=== PATIENT | male | born 1955 | race Caucasian/White ===

== ENCOUNTER 2017-01-16 02:20 | Emergency (ER) | payer OTHER ==
[~2017-01-16] VITALS: Ht 157.5 cm; Wt 76.7 kg
[2017-01-16 02:27] VITALS: BP 147/83
--- NOTE | 2017-01-16 02:33 | NUR ---
Patient ambulated to bed 02.
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
[2017-01-16] MEDS ORDERED: KETOROLAC 30 MG/ML VIAL IM ONE (02:40)
--- NOTE | 2017-01-16 04:09 | NUR ---
Patient discharged with v/s stable. Written and verbal after care instructions given and explained. Patient alert, oriented and verbalized understanding of instructions. Ambulatory with to car. All questions addressed prior to discharge. ID band removed. Patient advised to follow up with PMD. Rx of TYLENOL #3 TAB AND FLEXERIL 10MG given. Patient educated on indication of medication including possible reaction and side effects. Opportunity to ask questions provided and answered.
[2017-01-16 04:10] VITALS: BP 136/81
== END 2017-01-16 04:09 | disposition home or self-care (01) ==
LOC: MED 02:20
DX: M54.5 Low back pain (principal); V43.52XA Car driver injured in collision with other type car in traffic accident, initial encounter; Y93.89 Activity, other specified; Y92.89 Other specified places as the place of occurrence of the external cause; Y99.8 Other external cause status
CPT/HCPCS: 72100; 96372; 99284; J1885

== ENCOUNTER 2018-04-04 23:44 | Inpatient (IN) | payer OTHER, MEDICAID ==
[~2018-04-04] VITALS: Ht 165.1 cm; Wt 68.0 kg
[2018-04-05 00:02] VITALS: BP 146/88
[2018-04-05] MEDS ORDERED: NACL 0.9% 1,000 ML IV ONE (00:15)
[2018-04-05] MEDS ORDERED: KETOROLAC 30 MG/ML VIAL IVP ONE (00:15)
[2018-04-05 00:35] LABS: HEMATOCRIT 42.8 % (36-52); HEMOGLOBIN 14.4 g/dL (12.0-18.0); MEAN CORPUSCULAR HEMOGLOBIN 32 pg (27-31); MEAN CORPUSCULAR HGB CONC 34 g/dL (33-37); MEAN CORPUSCULAR VOLUME 93.4 fL (80-94); PLATELET COUNT (AUTO) 173 K/uL (140-450); RED BLOOD CELL COUNT(AUTO) 4.58 MIL/uL (4.20-6.10); RED CELL DISTRIBUTION WIDTH 13.7 % (11.6-13.7); WHITE BLOOD COUNT (AUTO) 6.7 K/uL (4.8-10.8)
[2018-04-05 00:57] LABS: ANION GAP 13.2 (8-16); CARBON DIOXIDE 26.2 mmol/L (21-32); CREATININE 0.9 mg/dL (0.7-1.3); POTASSIUM 3.4 mmol/L (3.5-5.1)
[2018-04-05 01:04] LABS: EOSINOPHILS % (MANUAL) 2 % (0-4); LYMPHOCYTES % (MANUAL) 47 % (20-46); MONOCYTES % (MANUAL) 6 % (5-12)
[2018-04-05 01:06] LABS: ALBUMIN 3.6 g/dL (3.4-5.0); TOTAL BILIRUBIN 0.7 mg/dL (0.0-1.0)
[2018-04-05] MEDS ORDERED: NITROGLYCERIN 2% 1 GM PKT TP ONE (01:20)
[2018-04-05] MEDS ORDERED: ASPIRIN 81 MG TAB.CHEW PO ONE (01:20)
[2018-04-05 01:39] LABS: PROTHROMBIN TIME 10.3 secs (10.8-13.4)
[2018-04-05] MEDS ORDERED: ENOXAPARIN 80 MG/0.8 ML SYR SUBQ ONE (01:45)
[2018-04-05] MEDS ORDERED: NITROGLYCERIN 0.4 MG TAB SL PRN (02:05)
[2018-04-05] MEDS ORDERED: HEPARIN PER PHARMACY MC PRN (02:05)
[2018-04-05] MEDS ORDERED: hePARIN / DEXT 5% PREMIX 250 ML IV SCH ×2 (02:05→03:00)
[2018-04-05] MEDS ORDERED: NAPR-54 PO (02:33)
[2018-04-05 02:46] LABS: CHOL/HDL RATIO 3.4 (1-4.5); FREE T4 (FREE THYROXINE) 0.85 ng/dL (0.76-1.46); MAGNESIUM 2.1 mg/dL (1.8-2.4); PHOSPHORUS 3.7 mg/dL (2.5-4.9); THYROID STIMULATING HORMONE 2.48 uIU/mL (0.34-3.74)
[2018-04-05] MEDS: NACL 0.9% 1,000 ML IV SCH ×2 (03:16→23:34)
[2018-04-05 04:00] VITALS: BP 112/68
[2018-04-05] MEDS: ACETAMINOPHEN 325 MG TAB PO PRN ×2 (07:04→09:32)
[2018-04-05 08:00] VITALS: BP 115/65
[2018-04-05] MEDS ORDERED: POTASSIUM CHLORIDE 10 MEQ TABER PO SCH (08:42)
[2018-04-05] MEDS ORDERED: ASPIRIN 81 MG TAB.CHEW PO SCH (09:00)
[2018-04-05] MEDS: DOCUSATE SODIUM 100 MG GELCAP PO SCH ×2 (09:00→20:18)
[2018-04-05] MEDS ORDERED: LISINOPRIL 5 MG TAB PO SCH (09:00)
[2018-04-05] MEDS: METOPROLOL 25 MG TAB PO SCH ×2 (09:33→20:20)
[2018-04-05 09:45] LABS: BASOPHILS % (AUTO) 0.3 % (0.0-2.0); EOSINOPHILS # (AUTO) 0.2 K/uL (0-0.4); HEMATOCRIT 41.5 % (36-52); HEMOGLOBIN 14.1 g/dL (12.0-18.0); LYMPHOCYTES # (AUTO) 2.5 K/uL (2.0-11.5); LYMPHOCYTES % (AUTO) 31.4 % (20.5-51.1); MEAN CORPUSCULAR HEMOGLOBIN 32 pg (27-31); MEAN CORPUSCULAR HGB CONC 34 g/dL (33-37); MEAN CORPUSCULAR VOLUME 93.4 fL (80-94); MONOCYTES # (AUTO) 0.5 K/uL (0.8-1.0); MONOCYTES % (AUTO) 6.7 % (1.7-9.3); NEUTROPHILS # (AUTO) 4.8 K/uL (1.8-7.7); NEUTROPHILS % (AUTO) 59.6 % (42.2-75.2); PLATELET COUNT (AUTO) 163 K/uL (140-450); RED BLOOD CELL COUNT(AUTO) 4.44 MIL/uL (4.20-6.10); RED CELL DISTRIBUTION WIDTH 13.8 % (11.6-13.7); WHITE BLOOD COUNT (AUTO) 8.1 K/uL (4.8-10.8)
[2018-04-05] MEDS ORDERED: HYDROcodone/APAP 5/325 MG 1 TAB TAB PO PRN (10:25)
[2018-04-05 10:29] LABS: CARBON DIOXIDE 22.6 mmol/L (21-32); CREATININE 0.9 mg/dL (0.7-1.3); POTASSIUM 3.6 mmol/L (3.5-5.1)
[2018-04-05 10:33] LABS: PHOSPHORUS 2.6 mg/dL (2.5-4.9)
[2018-04-05] MEDS: MORPHINE SULFATE 2 MG/ML SYR IVP PRN ×2 (10:43→20:17)
[2018-04-05 12:00] VITALS: BP 110/57
[2018-04-05] MEDS ORDERED: ATOR20TA40 PO (12:05)
[2018-04-05] MEDS ORDERED: METO25TA PO (12:05)
[2018-04-05] MEDS ORDERED: LISI-424 PO (12:05)
[2018-04-05] MEDS ORDERED: ASPI81CT95 PO (12:05)
[2018-04-05] MEDS: hePARIN / DEXT 5% PREMIX 250 ML IV SCH ×2 (14:47→22:17)
[2018-04-05 16:00] VITALS: BP 110/66
[2018-04-05] MEDS: HYDROcodone/APAP 5/325 MG 1 TAB TAB PO PRN ×2 (16:51→23:33)
[2018-04-05 20:00] VITALS: BP 124/60
[2018-04-05] MEDS ORDERED: ATORVASTATIN 20 MG TAB PO SCH (21:00)
[2018-04-06] VITALS: BP 137/70
[2018-04-06] MEDS ORDERED: BACLOFEN 10 MG TAB PO ONE (00:40)
[2018-04-06 01:10] VITALS: BP 110/59
[2018-04-06] MEDS: MORPHINE SULFATE 2 MG/ML SYR IVP PRN (03:54)
[2018-04-06 04:00] VITALS: BP 110/59
[2018-04-06 04:26] LABS: BASOPHILS % (AUTO) 0.2 % (0.0-2.0); EOSINOPHILS # (AUTO) 0.1 K/uL (0-0.4); EOSINOPHILS % (AUTO) 0.5 % (0.0-4.0); HEMATOCRIT 40.9 % (36-52); HEMOGLOBIN 13.9 g/dL (12.0-18.0); LYMPHOCYTES # (AUTO) 2.5 K/uL (2.0-11.5); LYMPHOCYTES % (AUTO) 24.4 % (20.5-51.1); MEAN CORPUSCULAR HEMOGLOBIN 32 pg (27-31); MEAN CORPUSCULAR HGB CONC 34 g/dL (33-37); MEAN CORPUSCULAR VOLUME 92.8 fL (80-94); MONOCYTES # (AUTO) 0.8 K/uL (0.8-1.0); MONOCYTES % (AUTO) 7.8 % (1.7-9.3); NEUTROPHILS # (AUTO) 6.9 K/uL (1.8-7.7); NEUTROPHILS % (AUTO) 67.1 % (42.2-75.2); PLATELET COUNT (AUTO) 156 K/uL (140-450); RED CELL DISTRIBUTION WIDTH 13.9 % (11.6-13.7); WHITE BLOOD COUNT (AUTO) 10.2 K/uL (4.8-10.8)
[2018-04-06 04:38] LABS: ANION GAP 13.4 (8-16); CARBON DIOXIDE 21.2 mmol/L (21-32); CREATININE 0.9 mg/dL (0.7-1.3); POTASSIUM 3.6 mmol/L (3.5-5.1)
[2018-04-06 04:42] LABS: MAGNESIUM 1.8 mg/dL (1.8-2.4)
[2018-04-06] MEDS: hePARIN / DEXT 5% PREMIX 250 ML IV SCH (05:16)
== END 2018-04-06 06:45 | disposition short-term general hospital (02) | DRG 282 ==
LOC: MED 23:44 → MTU 04-05 01:58
PROVIDERS: ADMIT General Practice; ATTEND General Practice
DX: I21.4 Non-ST elevation (NSTEMI) myocardial infarction (principal); E87.6 Hypokalemia; M19.90 Unspecified osteoarthritis, unspecified site; I10 Essential (primary) hypertension
CPT/HCPCS: 36415; 71045; 80048; 80053; 82150; 83036; 83690; 83735; 83880; 84100; 84439; 84443; 84484; 85025; 85610; 85730; 87081; 93005; 96372; 96374; 99285; J1644; J1650; J1885; J2270; J7030

== ENCOUNTER 2019-08-02 19:43 | Emergency (ER) | payer MEDICAID, OTHER ==
[~2019-08-02] VITALS: Ht 160 cm; Wt 72.6 kg
[~2019-08-02 19:43] MED LIST: ASPI81CT95 PO; ATOR20TA40 PO; LISI-424 PO; METO25TA PO; NAPR-54 PO
[2019-08-02 19:50] VITALS: BP 127/66
[2019-08-02] MEDS ORDERED: NACL 0.9% 1,000 ML IV ONE (20:50)
[2019-08-02] MEDS ORDERED: LEVOFLOXACIN 500 MG/D5W PREMIX 100 ML IV ONE (20:50)
[2019-08-02 21:24] LABS: APPEARANCE,URINE CLEAR (CLEAR); BILIRUBIN,URINE NEGATIVE (NEGATIVE); BLOOD, URINE NEGATIVE (NEGATIVE); COLOR,URINE YELLOW (YELLOW); LEUKOCYTE ESTERASE ,URINE NEGATIVE (NEGATIVE); NITRITE, URINE NEGATIVE (NEGATIVE); PH,URINE 7.5 (5.0-9.0); UGLUCOSE NEGATIVE (NEGATIVE)
[2019-08-02 21:28] LABS: BASOPHILS % (AUTO) 0.8 % (0.0-2.0); EOSINOPHILS # (AUTO) 0.1 K/uL (0-0.4); EOSINOPHILS % (AUTO) 2.8 % (0.0-4.0); HEMATOCRIT 43.4 % (36-52); HEMOGLOBIN 14.4 g/dL (12.0-18.0); LYMPHOCYTES # (AUTO) 1.9 K/uL (2.0-11.5); LYMPHOCYTES % (AUTO) 43.7 % (20.5-51.1); MEAN CORPUSCULAR HEMOGLOBIN 32 pg (27-31); MEAN CORPUSCULAR HGB CONC 33 g/dL (33-37); MEAN CORPUSCULAR VOLUME 94.7 fL (80-94); MONOCYTES # (AUTO) 0.5 K/uL (0.8-1.0); MONOCYTES % (AUTO) 11.2 % (1.7-9.3); NEUTROPHILS # (AUTO) 1.8 K/uL (1.8-7.7); NEUTROPHILS % (AUTO) 41.5 % (42.2-75.2); PLATELET COUNT (AUTO) 174 K/uL (140-450); RED BLOOD CELL COUNT(AUTO) 4.58 MIL/uL (4.20-6.10); RED CELL DISTRIBUTION WIDTH 14.3 % (11.6-13.7); WHITE BLOOD COUNT (AUTO) 4.4 K/uL (4.8-10.8)
[2019-08-02 21:50] LABS: ANION GAP 13.4 (8-16); CARBON DIOXIDE 26.6 mmol/L (21-32); CREATININE 0.9 mg/dL (0.7-1.3)
[2019-08-02 21:56] LABS: ALBUMIN 3.4 g/dL (3.4-5.0); TOTAL BILIRUBIN 0.6 mg/dL (0.0-1.0)
[2019-08-02 23:25] VITALS: BP 127/66
== END 2019-08-02 23:25 | disposition home or self-care (01) ==
LOC: MED 19:43
DX: A09 Infectious gastroenteritis and colitis, unspecified (principal); Z79.899 Other long term (current) drug therapy
CPT/HCPCS: 36415; 74176; 80053; 81003; 82150; 83690; 85025; 96365; 96366; 99284; J1956; J7030

== ENCOUNTER 2020-04-19 09:49 | Emergency (ER) | payer OTHER ==
[~2020-04-19] VITALS: Ht 160 cm; Wt 78.5 kg
[2020-04-19 09:51] VITALS: BP 158/82
--- NOTE | 2020-04-19 10:02 | NUR ---
64 Y/O MALE FROM HOME C/O RT LOWER TOOTH PAIN SINCE YESTERDAY. STATES HE TOOK TYLENOL AND IBUPROFEN AT 0900 WITH SLIGHT PAIN RELIEF. 10/10 ACHING PAIN, DENIES FEVER. AWAKE AND ALERT. VSS MEDHX: DENIES ALLERGIES: BRIAN
--- NOTE | 2020-04-19 10:04 | NUR ---
DR KATHLEEN AT BEDSIDE EXAMINING PT
[2020-04-19 10:11] VITALS: BP 158/82
--- NOTE | 2020-04-19 10:11 | NUR ---
PT PRESCRIBED PAIN MEDICATION FOR PAIN MANAGEMENT AT HOME
--- NOTE | 2020-04-19 10:12 | NUR ---
Patient discharged with v/s stable. Written and verbal after care instructions given and explained. Patient alert, oriented and verbalized understanding of instructions. Ambulatory with steady gait. All questions addressed prior to discharge. ID band removed. Patient advised to follow up with PMD. Rx of NORCO 5MG-325MG AND PENICILLIN VK 500MG given. Patient educated on indication of medication including possible reaction and side effects. Opportunity to ask questions provided and answered.
== END 2020-04-19 10:12 | disposition home or self-care (01) ==
LOC: MED 09:49
DX: K04.7 Periapical abscess without sinus (principal); Z79.82 Long term (current) use of aspirin; Z79.899 Other long term (current) drug therapy; Z98.890 Other specified postprocedural states
CPT/HCPCS: 99283